=== PATIENT | female | born 1955 | race African-American/Black ===

== ENCOUNTER → 2025-04-06 | Outpatient (REF) | payer OTHER ==
[~2025-04-06] MED LIST: IOPAMIDOL 370 MG/ML 100 ML INFUS..BTL INJ ONE; METOPROLOL TARTRATE 25 MG TAB ONE; METOPROLOL TARTRATE INJ 1 MG/ML VIAL ONE; NITROGLYCERIN 0.4 MG SUBL ONE; SODIUM CHLORIDE 0.9% 100 ML ONE
[2025-04-06 08:39] LABS: CREATININE, SERUM 0.95 mg/dL (0.57-1.11)
== END ==
LOC: CT 07:15
PROVIDERS: ATTEND Internal Medicine Cardiovascular Disease
DX: R07.2 Precordial pain (principal)
CPT/HCPCS: 36415; 75574; 75580; 82565; 84520; J7050; Q9967